=== PATIENT | male | born 1995 | race Caucasian/White ===

== ENCOUNTER 2017-01-03 06:05 | Emergency (ER) | payer OTHER ==
[~2017-01-03] VITALS: Ht 177.8 cm; Wt 81.6 kg
[2017-01-03 06:16] VITALS: BP 158/97
--- NOTE | 2017-01-03 06:21 | NUR ---
AMBULATED TO ER BED 8
[2017-01-03] MEDS ORDERED: LORazepam 1 MG TAB PO ONE (06:45)
--- NOTE | 2017-01-03 07:00 | NUR ---
21 YO MALE PATIENT PRESENTS TO ED WITH C/O IRREGULAR HEART RATE,SOB. . PT STATES HAS HAD FOR 2 MONTHS. DOES NOT TAKE ANY MEDICATION FOR IT . DENIES N/V/D; SKIN IS PINK/WARM/DRY; AAOX4 WITH EVEN AND STEADY GAIT; LUNGS CLEAR BL; ; PT DENIES ANY FEVER, OR COUGH AT THIS TIME; PATIENT STATES PAIN OF 0/10 AT THIS TIME; VSS; PATIENT POSITIONED FOR COMFORT; HOB ELEVATED; BEDRAILS UP X2; BED DOWN. ER MD MADE AWARE OF PT STATUS.
--- NOTE | 2017-01-03 07:17 | NUR ---
Pt report given to ROBBIE SLONA. Transfer of care at this time.
[2017-01-03 07:30] VITALS: BP 120/69
== END 2017-01-03 06:40 | disposition home or self-care (01) ==
LOC: MED 06:05
DX: R00.2 Palpitations (principal); R06.00 Dyspnea, unspecified; R06.02 Shortness of breath